=== PATIENT | female | born 1945 | race Caucasian/White ===

== ENCOUNTER → 2016-04-20 | Outpatient (CLI) | payer BC ==
[~2016-04-20] MED LIST: ALBUAER2 INH; ANAS1TAB19 PO; ASPEC81 PO; ATV5 PO; CALCTAB5 PO; GLC/500 PO; GLIM1TAB2 PO; GLIP2.5T11 PO; LEVO125T4 PO; LISI40TA PO; METO50TA7 PO; SIMV20TA2 PO; SIMV40TA2 PO; SYMIN/8045 INH; SYN100 PO
[2016-04-20 13:50] VITALS: BP 104/68; PULSE 94; TEMP 36.8; O2SAT 92
--- NOTE | 2016-04-20 16:08 | Radiation Oncology Follow-Up ---
Radiation Oncology Follow-Up Date of Visit Apr 20, 2016. Reason For Visit Annual follow-up Radiation Completion Date finished 05-11-2011 Diagnosis (1) Breast cancer Status: Resolved Onset Date: 09/15/2010 Permanent Comment: Self detected right breast mass 08/31/2010 Abnormal mammogram Biopsy-positive for infiltrating ductal carcinoma 09/15/2010 Status post partial mastectomy and sentinel lymph node biopsy [id number] Status post systemic chemotherapy with 4 cycles of docetaxel and cyclophosphamide Status post completion of radiation therapy 05/21/2011 received 5940 cGy Last Edited By: Rubi Cleary on Mar 17, 2015 15:04 Interim History She's been doing well over this past year. She denies any changes or breast. She has noted no masses or tenderness and no change of the axilla. She's had no swelling of her arm. She is up-to-date on mammography. She has her mammograms in [place] as well as recheck visits at the breast surgeons office. Her most recent visit was on 07/09/2015. She does have resolving bronchitis and is currently not antibiotic therapy. She states that she is steadily improving. She is on Arimidex and denies side effects. She stated that initially she was to be on the medication for 5 years and now there is discussion of possibly continuing medication for a total of 10 years. She'll be reviewing this at her next visit in medical oncology. Allergies Coded Allergies: No Known Allergies (Unverified , 11/10/10) Home Medications Scheduled Albuterol (Ventolin Hfa), 1 PUFF INH QID PRN Anastrozole (Arimidex), 1 MG PO DAILY Aspirin Enteric Coated (Ecotrin Or Generic *), 81 MG PO QAM Budesonide/Formoterol Fumarate (Symbicort 80/4.5 Inhaler), 2 PUFFS INH BID PRN Calcium (Caltrate), 600 MG PO BID Glimepiride (Glimepiride), 1 TAB PO BID Levothyroxine Sodium (Levothyroxine Sodium), 1 TAB PO DAILY Lisinopril (Zestril), 40 MG PO DAILY Metoprolol Succ (Toprol Xl) (Toprol-Xl), 50 MG PO DAILY Simvastatin (Zocor), 1 TAB PO HS Scheduled PRN Lorazepam (Ativan *), 0.5 MG PO TID PRN Review of Systems Gastrointestinal: Symptoms: WNL Oral: Symptoms: No Problems Respiratory: Symptoms: Moist Cough, SOB With Exertion Other Respiratory: " I have bronchitis ", on 2 nd antibiotic for this/ not sure name Urinary: Symptoms: WNL Skin: Symptoms: No Problems Breast: Right Upper Arm Measurement: 32.0 Right Mid Arm Measurement: 25.5 Right Wrist Measurement: 16.6 Left Upper Arm Measurement: 34.0 Left Mid Arm Measurement: 26.0 Left Wrist Measurement: 17.0 Arm Dominence: Right Patient Cosmetic Evaluation: Excellent Staff Cosmetic Evalaluation: Excellent Physical Exam Vital Signs Date Time Temp Pulse Resp B/P Pulse Ox O2 Delivery O2 Flow Rate FiO2 04/20/16 13:50 36.8 94 20 104/68 92 Pain: Side: Bilateral Patient Pain Scale: 0 - 10 Initial Pain Intensity: 0.0 Fatigue: None General Appearance: no apparent distress Eyes: normal inspection, EOMI ENT: normal ENT inspection, hearing grossly normal Neck: no adenopathy, thyroid normal Respiratory/Chest: no respiratory distress, no accessory muscle use, + pertinent finding (mild transtracheal congestion with cough) Breast: Breast examination reveals well-healed incisions of the right breast. There are no masses or tenderness and no axillary adenopathy she has no skin retractions or nipple changes. She has slight telangiectasis along the incision line. Using the [place] score cosmesis she has a good outcome. Left breast showed no masses or tenderness no axillary adenopathy. Cardiovascular: regular rate, rhythm, no gallop, no murmur Abdomen: non tender, soft Extremities: no pedal edema Neurologic/Psychiatric: no motor/sensory deficits, alert, normal mood/affect Skin: warm/dry Lymphatic: no adenopathy Additional Studies She had a mammogram 07/09/2015. There was no mammographic evidence of malignancy. Continue follow-up mammography in 1 year. BI-RADS Category 2. Assessment & Plan Plan: She'll continue regular follow-up with medical oncology, the breast surgeons office, and her PCP. A follow-up appointment with our office was not given. She has now completed 5 years of follow-up with our department. She may call if she has any questions or concerns would be happy to see her. She' ll follow-up with her primary care physician if her bronchitis does not continue to improve. She has a follow-up appointment with medical oncology to discuss continuing the Arimidex. Total Time In Follow-Up I spent 20 minutes speaking to the patient and performing examination. I spent 15 minutes reviewing information in completing this note. Copy To Agnieszka Blue; Dominic Giles M.D.; Meghan Poon ., URABN
== END | disposition home or self-care (01) ==
LOC: C.ONC 13:38
PROVIDERS: ATTEND Radiology Radiation Oncology
DX: Z08 Encounter for follow-up examination after completed treatment for malignant neoplasm (principal); Z92.3 Personal history of irradiation; Z85.3 Personal history of malignant neoplasm of breast

== ENCOUNTER → 2017-04-30 | Outpatient (CLI) | payer OTHER ==
[~2017-04-30] MED LIST changes: -GLC/500 PO; -GLIP2.5T11 PO; -LEVO125T4 PO; +LEVO125T5 PO; -METO50TA7 PO; +METO50TA8 PO; -SIMV40TA2 PO; -SYN100 PO
[2017-04-30 12:27] LABS: BASO ABS # 0.14 K/uL (0-0.2); EOS % 7.7 %; EOS ABS # 0.54 K/uL (0-0.5); HEMATOCRIT 41.4 % (37-47); HEMOGLOBIN 13.6 g/dL (12.0-16.0); IG# 0.04 K/uL (0.00-0.02); LYMPH % 12.4 %; LYMPH ABS # 0.87 K/uL (1.2-3.4); MEAN CELL VOLUME 92.8 fL (80-100); MEAN CORPUSCULAR HEMOGLOBIN 30.5 pg (25-34); MEAN CORPUSCULAR HGB CONC 32.9 g/dl (32-36); MEAN PLATELET VOLUME 11.5 fL (7.4-10.4); MONO % 13.9 %; MONO ABS # 0.98 K/uL (0.11-0.59); NEUT % 63.4 %; NEUT ABS # 4.46 K/uL (1.4-6.5); PLATELET COUNT 174 K/uL (130-400); RED CELL DISTRIBUTION WIDTH CV 13.5 % (11.5-14.5); RED CELL DISTRIBUTION WIDTH SD 45.8 fL (36.4-46.3); WHITE BLOOD COUNT 7.03 K/uL (4.8-10.8)
[2017-04-30 13:09] LABS: ALBUMIN 3.3 gm/dl (3.4-5.0); ALT/SGPT 20 U/L (12-78); AST/SGOT 12 U/L (15-37); BLOOD UREA NITROGEN 19 mg/dl (7-18); CALCIUM 8.8 mg/dl (8.5-10.1); CARBON DIOXIDE 27 mmol/L (21-32); CREATININE 0.91 mg/dl (0.60-1.20); GLUCOSE 144 mg/dl (70-99); POTASSIUM 4.7 mmol/L (3.5-5.1); SODIUM 139 mmol/L (136-145)
[2017-04-30 13:16] LABS: HEMOGLOBIN A1C 8.4 % (4.5-5.6)
[2017-04-30 13:21] LABS: ALKALINE PHOSPHATASE 67 U/L (45-117); CHOLESTEROL 156 mg/dl (0-200); LDL CHOLESTEROL CALCULATED 79 mg/dl; TOTAL PROTEIN 7.3 gm/dl (6.4-8.2)
== END | disposition home or self-care (01) ==
LOC: C.LABMFLN 08:58
PROVIDERS: ATTEND Family Medicine
DX: E11.9 Type 2 diabetes mellitus without complications (principal); E78.00 Pure hypercholesterolemia, unspecified; I26.99 Other pulmonary embolism without acute cor pulmonale; E03.9 Hypothyroidism, unspecified

== ENCOUNTER → 2017-05-28 | Outpatient (CLI) | payer OTHER ==
[2017-05-28 13:11] LABS: HEMOGLOBIN A1C 8.4 % (4.5-5.6)
[2017-05-28 14:11] LABS: ALBUMIN 3.5 gm/dl (3.4-5.0); BLOOD UREA NITROGEN 22 mg/dl (7-18); CARBON DIOXIDE 25 mmol/L (21-32); CREATININE 1.03 mg/dl (0.60-1.20); GLUCOSE 113 mg/dl (70-99); POTASSIUM 4.5 mmol/L (3.5-5.1); SODIUM 140 mmol/L (136-145)
[2017-05-28 14:22] LABS: PHOSPHORUS 3.5 mg/dl (2.5-4.9)
== END | disposition home or self-care (01) ==
LOC: C.LABMFLN 07:45
PROVIDERS: ATTEND Family Medicine
DX: I51.9 Heart disease, unspecified (principal); E03.9 Hypothyroidism, unspecified; E11.9 Type 2 diabetes mellitus without complications